=== PATIENT | male | born 1980 | race Caucasian/White ===

== ENCOUNTER 2017-09-06 22:26 | Outpatient (CLI) | END 2017-09-06 22:27 | disposition short-term general hospital (02) | LOC: AMBL 22:26 | PROVIDERS: ATTEND Internal Medicine Geriatric Medicine | DX: M54.2 Cervicalgia (principal); V53.5XXA Driver of pick-up truck or van injured in collision with car, pick-up truck or van in traffic accident, initial encounter ==